=== PATIENT | male | born 1930 | race Caucasian/White ===

== ENCOUNTER → 2021-05-18 | Outpatient (CLI) | payer OTHER | LOC: SJCVCIMAG 08:27 | PROVIDERS: ATTEND Internal Medicine Cardiovascular Disease | DX: I08.3 Combined rheumatic disorders of mitral, aortic and tricuspid valves (principal); I48.91 Unspecified atrial fibrillation ==

== ENCOUNTER → 2021-06-16 | Outpatient (CLI) | payer OTHER ==
[~2021-06-16] VITALS: Ht 182.9 cm; Wt 81.8 kg
[~2021-06-16] MED LIST: CAL-MAG TABLET1 EACH PO; COMBIGAN EYE DR10 ML OPHTHALMIC; ELIQUIS5 MG PO; FUROSEMIDE 20 M20 MG PO; GARLIC1 EACH PO; GINKGO BILOBA60 M1 PO; GLUCOSAMINE CH1 EAC4 PO; LUMIGAN2.5 M1 OP; MELATONIN5 M4 PO; PACERONE200 MG PO; PROSCAR 5MG TABL5 M1 PO; SAW PALMETTO500 MG PO; ST. JOHN'S WOR300 MG PO; TOPROL XL25 MG PO; VITAMIN B COMP1 EACH PO; VITAMIN C1000 MG PO; VITAMIN D250 MC1 PO; VITAMIN E1000 UNIT PO
[2021-06-16 07:24] VITALS: BP 132/82
--- NOTE | 2021-06-16 09:18 | TEE ---
[facility] [address] [place] [address] TRANSESOPHAGEAL ECHOCARDIOGRAM Name: LENA CONNORS Room #: REG [facility]#: [id number] Admission: 06/16/21 Attend Phys: Maldonado Bergman MD, Discharge: Date of : [birth year] Report #: [id number] THIS REPORT FOR: cc: Roland Hernandes MD, Gregory MD Lundgren,Maldonado Mendes MD [facility] ~ APPROVED REPORT Study performed: 06/16/2021 08:06:25 EXAM: Transesophageal Echocardiogram with Doppler and cardioversion Patient Location: Out-Patient Room #: 9 Status: routine BSA: 2.04 HR: 85 bpm BP: 122/64 mmHg Rhythm: Atrial Fibrillation Other Information Study Quality: Good Indications Atrial Fibrillation Echo Enhancing Agent Indication: Rule out Shunt Agent(s) / Amount(s) Used: Agitated Saline 7 cc Procedure After obtaining informed consent, patient underwent transesophageal echo in the [employer]. Type of Sedation : Conscious Sedation Sedation was administered by Nurse. Sedation start time: 823 Case end Time: 828 Sedation was achieved intravenously with: Versed (3mg) Fentanyl (100mcg) Transesophageal probe was inserted and advanced into esophagus without difficulty by Maldonado Bergman MD. Echo enhancement indication: R/O Septal defect. Echo enhancement agent administered: Agitated Saline The KRISTOFER was performed without complications. Synchronized Cardioversion acheived with 150 Joules after 1 [facility] [address] [address] TRANSESOPHAGEAL ECHOCARDIOGRAM Name: LENA CONNORS Room #: REG CL [facility]#: [id number] Admission: 06/16/21 Attend Phys: aMldonado Bergman, Discharge: Date of : [birth year] Report #: [id number] attempt(s). Rhythm following Synchronized Cardioversion: Normal Sinus Rhythm Throughout the procedure, the blood pressure, pulse oximetry, cardiac rhythm, and rate were monitored. The patient tolerated the procedure without adverse effects. Recovery from conscious sedation was uneventful and vital signs were stable. Left Ventricle The left ventricle is normal size. There is global hypokinesis of the left ventricle. There is normal left ventricular wall thickness. Left ventricular systolic function is mildly decreased. LVEF is 45-50%. Right Ventricle The right ventricle is normal size. The right ventricular systolic function is normal. Atria Left atrium is dilated. No thrombus is visualized in the left atrium or appendage. No shunting by contrast bubble injection Right atrium is dilated. Aortic Valve The aortic valve is trileaflet, mildly sclerotic Trace aortic regurgitation. There is no aortic valvular stenosis. Mitral Valve The mitral valve is normal in structure. Mild-moderate mitral regurgitation. No evidence of mitral valve stenosis. Tricuspid Valve The tricuspid valve is normal in structure. Mild to moderate tricuspid regurgitation. Pulmonic Valve The pulmonary valve is normal in structure. There is no pulmonic valvular regurgitation. Great Vessels The aortic root is normal in size. The ascending aorta is normal in size. Mild-moderate scattered atherosclerosis IVC is normal in size and collapses >50% with inspiration. Pericardium There is no pericardial effusion. [facility] [address] [address] TRANSESOPHAGEAL ECHOCARDIOGRAM Name: LENA CONNORS Room #: REG Dipesh#: [id number] Admission: 06/16/21 Attend Phys: Maldonado Bergman, Discharge: Date of : [birth year] Report #: [id number] <Conclusion> Left ventricular systolic function is mildly decreased. There is global hypokinesis of the left ventricle. LVEF is 45-50%. Both atria are dilated. No thrombus is visualized in the left atrium or appendage. No shunting by contrast bubble injection The aortic valve is trileaflet, mildly sclerotic. Trace aortic regurgitation, no stenosis. The mitral valve is normal in structure. Mild-moderate mitral regurgitation. There is no pericardial effusion. Successful cardioversion of atrial fibrillation to sinus following single 150J biphasic, synchronous shock <ELECTRONICALLY SIGNED> By: Maldonado Bergman MD, [facility] 06/16/21917 7 7 Maldonado Bergman MD, FACC /INF
== END | disposition home or self-care (01) ==
LOC: CATH 06:20
PROVIDERS: ATTEND Internal Medicine
DX: I48.91 Unspecified atrial fibrillation (principal); I08.3 Combined rheumatic disorders of mitral, aortic and tricuspid valves; I12.9 Hypertensive chronic kidney disease with stage 1 through stage 4 chronic kidney disease, or unspecified chronic kidney disease; N18.9 Chronic kidney disease, unspecified; E78.5 Hyperlipidemia, unspecified; J32.0 Chronic maxillary sinusitis; I42.9 Cardiomyopathy, unspecified; N40.0 Benign prostatic hyperplasia without lower urinary tract symptoms; I25.10 Atherosclerotic heart disease of native coronary artery without angina pectoris; H40.9 Unspecified glaucoma; Z98.890 Other specified postprocedural states; Z79.899 Other long term (current) drug therapy; Z86.73 Personal history of transient ischemic attack (TIA), and cerebral infarction without residual deficits; Z79.01 Long term (current) use of anticoagulants